=== PATIENT | female | born 1970 | race Caucasian/White ===

== ENCOUNTER → 2016-05-28 | Outpatient (CLI) | payer OTHER, MEDICAID | LOC: FIMAGING 14:05 | PROVIDERS: ATTEND Family Medicine | DX: Z13.820 Encounter for screening for osteoporosis (principal); M85.80 Other specified disorders of bone density and structure, unspecified site; E07.9 Disorder of thyroid, unspecified; G40.909 Epilepsy, unspecified, not intractable, without status epilepticus; Z99.3 Dependence on wheelchair ==

== ENCOUNTER → 2016-07-09 | Outpatient (CLI) | payer OTHER, MEDICAID | LOC: FIMAGING 15:35 | DX: Z12.31 Encounter for screening mammogram for malignant neoplasm of breast (principal) | CPT/HCPCS: G0202 ==

== ENCOUNTER 2016-09-03 08:23 | Day surgery (SDC) | payer OTHER, MEDICAID ==
--- NOTE | 2016-09-02 15:41 | GHP ---
[f rep st] PREOP HISTORY AND PHYSICAL DATE OF ADMISSION: 09/03/2016 ADMISSION DIAGNOSIS: Neurogenic bladder. HISTORY OF PRESENT ILLNESS: This is a 46-year-old lady who is wheelchair-bound because of cerebral palsy and a history of cerebrovascular accident. She has severe urge incontinence and, at the prese nt time, has requested a Botox injection of the bladder to attempt to help her with her neurogenic u rinary incontinence. PAST MEDICAL HISTORY: Cerebral palsy, diabetes, dysarthria, epilepsy, hemiplegia, hypertension, hyp othyroidism, incontinence with neurogenic bladder, restless legs syndrome, seizure disorder. PAST SURGICAL HISTORY: Cholecystectomy, heart bypass, hip, inguinal hernia, knee, and umbilical her tod. MEDICATIONS: Include amantadine, carbamazepine, furosemide, levetiracetam, levothyroxine, lisinopri l, nystatin powder, omeprazole, ropinirole, tizanidine, trimethoprim. ALLERGIES: [place], Tylenol, Tylox, Vicodin, Zosyn. FAMILY HISTORY: Diabetes, hypertension, kidney stones. SOCIAL HISTORY: Nonsmoker, nondrinker. REVIEW OF SYSTEMS: Negative cardiac, respiratory, GI, and endocrine. PHYSICAL EXAM: GENERAL: Wheelchair-bound. NECK: Normal with normal thyroid. RESPIRATORY: Effor t is nonlabored. ABDOMEN: Obese. HEART: Regular rate and rhythm. LOWER EXTREMITIES: Normal. N EUROLOGIC: She is oriented x3. Mood and affect are normal. PLAN: She is admitted for Botox injection of the bladder. Indications and complications have been discussed. Written and verbal consent have been obtained. /[id number]/MODL
--- NOTE | 2016-09-03 06:44 | PDHPUP ---
History & Physical Update H&P update statement: This history and physical update is based on an assessment of the patient which was completed after admission or registration (within 24 hours), but prior to the surgery/procedure. H&P update: H&P reviewed & patient examined, no change in patient's condition since H&P completed
[~2016-09-03 08:23] MED LIST: CLINDAMYCIN 900 MG/DEXTROSE 50 ML IV ONE
[2016-09-03] MEDS ORDERED: LR 1,000 ML IV ONE (09:02)
[2016-09-03 09:16] VITALS: O2SAT 95
--- NOTE | 2016-09-03 09:39 | CPEKG ---
Heart Rate: 84 RR Interval: 714 P-R Interval: 184 QRSD Interval: 88 QT Interval: 380 QTC Interval: 450 P Nelson: 47 QRS Nelson: 57 T Wave Nelson: 38 EKG Severity - NORMAL ECG - EKG Impression: SINUS RHYTHM Electronically Signed By: Jared Pearson 03-Sep-2016 10:00:26
[2016-09-03] MEDS ORDERED: CLINDAMYCIN 900 MG/DEXTROSE 50 ML IV ONE (10:00)
[2016-09-03] MEDS ORDERED: BOTULINUM TOXIN TYPE A 100 UNIT VIAL MISC ONE (10:06)
--- NOTE | 2016-09-03 10:25 | PDANEPAE ---
ANE History of Present Illness NEUROGENIC BLADDER ANE Past Medical History - Cardiovascular History Hx Hypertension: Yes Hx Arrhythmias: No Hx Chest Pain: No Hx Coronary Artery / Peripheral Vascular Disease: No Hx CHF / Valvular Disease: No Hx Palpitations: No - Pulmonary History Hx COPD: No Hx Asthma/Reactive Airway Disease: No Hx Recent Upper Respiratory Infection: No Hx Oxygen in Use at Home: No Hx Sleep Apnea: No Sleep Apnea Screening Result - Last Documented: Negative Pulmonary History Comment: ASTHMA - INHALER - Neurologic History Hx Cerebrovascular Accident: No Hx Seizures: No Hx Dementia: No Neurologic History Comment: CVA 6 YRS AGO. SEIZURE 2YRS AGO - Endocrine History Hx Diabetes: Yes Endocrine History Comment: HYPOTHYROID - Renal History Hx Renal Disorders: Yes Renal History Comment: INCONTINENCE. UROGENIC BLADDER - Liver History Hx Hepatic Disorders: Yes Hepatic History Comment: CHOLECYSTECTOMY - Neurological & Psychiatric Hx Hx Neurological and Psychiatric Disorders: No - Cancer History Hx Cancer: No - Congenital Disorder History Hx Congenital Disorders: No - GI History Hx Gastrointestinal Disorders: Yes Gastrointestinal History Comment: GERD - Other Health History Other Health History: EPILEPSY. ENCEPHALOPATHY - Chronic Pain History Chronic Pain: No - Surgical History Prior Surgeries: L DIANNE. SHUNT - BRAIN(STROKE W/FLUID BRAIN & STROKE). CHOLECYSTECTOMY ANE Review of Systems - Exercise capacity METS (RN): 1 METS ANE Patient History - Allergies Allergies/Adverse Reactions: acetaminophen [From Vicodin] Allergy (Intermediate, Verified 02/05/16 11:25) GI UPSET, EXTREME FATIGUE hydrocodone bitartrate [From Vicodin] Allergy (Intermediate, Verified 02/05/16 11:25) GI UPSET, EXTREME FATIGUE oxycodone HCl [From Tylox] Allergy (Verified 02/05/16 11:25) piperacillin sodium [From Zosyn] Allergy (Verified 02/05/16 11:25) tazobactam sodium [From Zosyn] Allergy (Verified 02/05/16 11:25) STRAWBERRIES Allergy (Intermediate, Uncoded 02/05/16 11:25) Rash - Home Medications Home Medications: Carbamazepine 04/27/14 [Last Taken Unknown] LEVETIRACETAM 04/27/14 [Last Taken Unknown] Levothyroxine 04/27/14 [Last Taken Unknown] Lisinopril 04/27/14 [Last Taken Unknown] Omeprazole 04/27/14 [Last Taken Unknown] Requip 04/27/14 [Last Taken Unknown] Trimethoprim 04/27/14 [Last Taken Unknown] Vitamin B Comp W-C 04/27/14 [Last Taken Unknown] Lasix 04/09/15 [Last Taken Unknown] - NPO status NPO Since - Liquids (Date): 09/03/16 NPO Since - Liquids (Time): 07:00 NPO Since - Solids (Date): 09/02/16 NPO Since - Solids (Time): 17:00 - Anes Hx Anes Hx: no prior problems - Smoking Hx Smoking Status: Never smoked ANE Labs/Vital Signs - Labs Result Diagrams: 09/03/16 09:30 - Vital Signs Blood Pressure: 143/88 Heart Rate: 87 Respiratory Rate: 15 O2 Sat (%): 95 Height: 149.86 cm Weight: 88.904 kg ANE Physical Exam - Airway Neck exam: FROM Mallampati Score: Class 2 Mouth exam: normal dental/mouth exam - Pulmonary Pulmonary: no respiratory distress - Cardiovascular Cardiovascular: regular rate and rhythym - ASA Status ASA Status: III ANE Anesthesia Plan Anesthesia Plan: general endotracheal anesthesia, GA w LMA
[2016-09-03] MEDS ORDERED: MIDAZOLAM 2 MG/2 ML VIAL IVP ONE (10:27)
[2016-09-03] MEDS ORDERED: MIDAZOLAM 2 MG/2 ML VIAL ONE (10:29)
[2016-09-03] MEDS ORDERED: PROPOFOL 200 MG/20 ML VIAL ONE ×2 (10:35→11:13)
[2016-09-03] MEDS ORDERED: fentaNYL 100 MCG/2 ML INJ ONE (10:35)
[2016-09-03 10:37] LABS: ANION GAP 11 mEq/L (8-16); CALCIUM 9.3 mg/dL (8.5-10.4); CARBON DIOXIDE 22 mEq/l (22-31); CHLORIDE 108 mEq/L (97-110); CREATININE 0.6 mg/dL (0.6-1.0); GLOMERULAR FILTRATION RATE > 60; GLUCOSE 92 mg/dL (70-100); POTASSIUM 4.6 mEq/L (3.5-5.2); SODIUM 141 mEq/L (134-144)
[2016-09-03] MEDS ORDERED: DEXAMETHASONE 4 MG/ML VIAL IVP PRN (11:11)
[2016-09-03] MEDS ORDERED: fentaNYL 100 MCG/2 ML INJ IVP PRN (11:11)
[2016-09-03] MEDS ORDERED: NALOXONE HCL 0.4 MG/ML INJ IVP PRN (11:11)
--- NOTE | 2016-09-03 11:30 | POSTANESTH ---
Post Anesthetic Evaluation Cardiovascular Status: Normal, Stable Respiratory Status: Normal, Stable Level of Consciousness/Mental Status: Can Participate in Eval Pain Control: Adequate, Prn Tx Ordered Nausea/Vomiting Control: Adequate, Prn Tx Ordered Complications Possibly Related to Anesthesia: None Noted
[2016-09-03 12:54] VITALS: TEMP 97.5
--- NOTE | 2016-09-03 12:55 | GOP ---
[f rep st] OPERATIVE REPORT DATE OF OPERATION: 09/03/2016 SURGEON: Dav Davila MD PREOPERATIVE DIAGNOSIS: Neurogenic bladder with urge incontinence. POSTOPERATIVE DIAGNOSIS: Neurogenic bladder with urge incontinence. PROCEDURE PERFORMED: FINDINGS: DESCRIPTION OF PROCEDURE: After undergoing general anesthesia and being prepped and draped in destini l sterile fashion, an appropriate time-out was performed. The scope was passed into her bladder, an d I reconstituted 200 units of Botox into 30 cc total of normal saline without preservative. At cecy t point, she had 31 mL injections into the bladder. At the end of the procedure, there was no signi ficant bleeding, and a Vega catheter was placed. She will be discharged home after she wakes. The catheter will be removed. She will see me in the office in 3 months. PROCEDURE: Cystoscopy with Botox denervation injections of the bladder. /[id number]/MODL
[2016-09-03 13:19] VITALS: RESP 13
[2016-09-03 13:45] VITALS: BP 102/62; PULSE 82
== END 2016-09-03 14:10 | disposition home or self-care (01) ==
LOC: FSGY 08:23
PROVIDERS: ATTEND Specialist
PROC: 3E0K8GC Introduction of Other Therapeutic Substance into Genitourinary Tract, Via Natural or Artificial Opening Endoscopic (ICD-10-PCS; principal; 2016-09-03 10:00)
DX: N31.9 Neuromuscular dysfunction of bladder, unspecified (principal); N39.41 Urge incontinence; G80.9 Cerebral palsy, unspecified; I69.359 Hemiplegia and hemiparesis following cerebral infarction affecting unspecified side; I69.322 Dysarthria following cerebral infarction; E11.9 Type 2 diabetes mellitus without complications; I10 Essential (primary) hypertension; E03.9 Hypothyroidism, unspecified; G40.909 Epilepsy, unspecified, not intractable, without status epilepticus
CPT/HCPCS: J0585; J2250; J2704; J3010

== ENCOUNTER 2017-01-14 13:49 | Day surgery (SDC) | payer OTHER, MEDICAID ==
--- NOTE | 2017-01-13 15:49 | GHP ---
[f rep st] PREOP HISTORY AND PHYSICAL ADMISSION DIAGNOSIS: Neurogenic bladder with urge incontinence. By history, this is a 46-year-old l leatha who has cerebral palsy and history of a stroke, and she has had a neurogenic bladder. She has be en treated with Botox in the past successfully and is requesting repeat Botox injection. She is whee lchair bound. She has cerebral palsy, hemiplegia. PREVIOUS SURGERIES: Botox, cholecystectomy, coronary bypass, hip surgery, inguinal hernia, knee, and umbilical hernia. MEDICATIONS: Include amantadine, carbamazepine, furosemide, levetiracetam, levothyroxine, lisinopril , omeprazole. ALLERGIES: [place], Tylenol, Tylox, Vicodin, and Zosyn. FAMILY HISTORY: Positive for diabetes, hypertension, kidney stones. SOCIAL HISTORY: Nonsmoker, nondrinker. REVIEW OF SYSTEMS: Negative cardiac, respiratory, GI, and endocrine. PHYSICAL EXAMINATION: GENERAL: Wheelchair bound, obese. VITAL SIGNS: Stable. CHEST: Clear. Unl abored breathing. EXTREMITIES: Lower extremities compatible with her congenital problems. She is admitted for Botox injection. /[id number]/MODL
[2017-01-14] MEDS ORDERED: LIDOCAINE 1% 2 ML INJ ID PRN (14:07)
[2017-01-14] MEDS ORDERED: LR 1,000 ML IV ONE (14:07)
[2017-01-14] MEDS ORDERED: BOTULINUM TOXIN TYPE A 100 UNIT VIAL MISC ONE (14:45)
[2017-01-14] MEDS ORDERED: ceFAZolin 2 GM/SWFI 2 GM/20 ML SYR IVP ONE (15:02)
[2017-01-14 15:04] LABS: ALANINE AMINOTRANSFERASE 33 IU/L (9-52); ALBUMIN 4.2 g/dL (3.5-5.0); ALKALINE PHOSPHATASE 142 IU/L (38-126); ANION GAP 12 mEq/L (8-16); ASPARTATE AMINOTRANSFERASE 25 IU/L (14-46); BILIRUBIN,TOTAL 0.4 mg/dL (0.1-1.4); CALCIUM 9.2 mg/dL (8.5-10.4); CARBON DIOXIDE 26 mEq/l (22-31); CHLORIDE 100 mEq/L (97-110); CREATININE 0.5 mg/dL (0.6-1.0); GLOMERULAR FILTRATION RATE > 60; GLUCOSE 87 mg/dL (70-100); POTASSIUM 4.4 mEq/L (3.5-5.2); SODIUM 138 mEq/L (134-144); TOTAL PROTEIN 7.5 g/dL (6.3-8.2)
[2017-01-14] MEDS ORDERED: VANCOMYCIN HCL/NORMAL SALINE 250 ML IV ONE (15:04)
[2017-01-14] MEDS ORDERED: MIDAZOLAM 2 MG/2 ML VIAL IVP ONE (15:08)
--- NOTE | 2017-01-14 15:12 | PDANEPAE ---
ANE History of Present Illness 46 yo with CP and neurogenic ANE Past Medical History - Cardiovascular History Hx Hypertension: Yes Hx Arrhythmias: No Hx Chest Pain: No Hx Coronary Artery / Peripheral Vascular Disease: No Hx CHF / Valvular Disease: No Hx Palpitations: No - Pulmonary History Hx COPD: No Hx Asthma/Reactive Airway Disease: Yes Hx Recent Upper Respiratory Infection: No Hx Oxygen in Use at Home: No Hx Sleep Apnea: No Sleep Apnea Screening Result - Last Documented: Negative Pulmonary History Comment: ASTHMA - INHALER - Neurologic History Hx Cerebrovascular Accident: No Hx Seizures: No Hx Dementia: No Neurologic History Comment: CVA 6 YRS AGO. SEIZURE 2YRS AGO - Endocrine History Hx Diabetes: Yes Endocrine History Comment: HYPOTHYROID - Renal History Hx Renal Disorders: Yes Renal History Comment: INCONTINENCE. UROGENIC BLADDER - Liver History Hx Hepatic Disorders: Yes Hepatic History Comment: CHOLECYSTECTOMY - Neurological & Psychiatric Hx Hx Neurological and Psychiatric Disorders: No - Cancer History Hx Cancer: No - Congenital Disorder History Hx Congenital Disorders: No - GI History Hx Gastrointestinal Disorders: Yes Gastrointestinal History Comment: GERD - Other Health History Other Health History: EPILEPSY. ENCEPHALOPATHY - Chronic Pain History Chronic Pain: No - Surgical History Prior Surgeries: CYSTO WITH BOTOX 09/03/2016. L DIANNE. SHUNT - BRAIN(STROKE W/ FLUID BRAIN & STROKE). CHOLECYSTECTOMY ANE Review of Systems Review of systems is: negative Review of Systems: - Exercise capacity METS (RN): 1 METS ANE Patient History - Allergies Allergies/Adverse Reactions: acetaminophen [From Vicodin] Allergy (Intermediate, Verified 02/05/16 11:25) GI UPSET, EXTREME FATIGUE hydrocodone bitartrate [From Vicodin] Allergy (Intermediate, Verified 02/05/16 11:25) GI UPSET, EXTREME FATIGUE oxycodone HCl [From Tylox] Allergy (Verified 02/05/16 11:25) piperacillin sodium [From Zosyn] Allergy (Verified 02/05/16 11:25) tazobactam sodium [From Zosyn] Allergy (Verified 02/05/16 11:25) STRAWBERRIES Allergy (Intermediate, Uncoded 02/05/16 11:25) Rash - Home Medications Home Medications: Carbamazepine HS 04/27/14 [Last Taken 01/13/17] LEVETIRACETAM BID 04/27/14 [Last Taken 01/14/17 08:00] Levothyroxine DAILY06 04/27/14 [Last Taken 01/14/17 08:00] Lisinopril DAILY06 04/27/14 [Last Taken 01/14/17] Omeprazole DAILY06 04/27/14 [Last Taken 01/14/17 08:00] Requip HS 04/27/14 [Last Taken 01/14/17 08:00] Trimethoprim DAILY06 04/27/14 [Last Taken Unknown] Vitamin B Comp W-C DAILY06 04/27/14 [Last Taken Unknown] Lasix DAILY06 04/09/15 [Last Taken 01/13/17] Proair Hfa PRN 01/12/17 [Last Taken 12/24/16] VITAMIN D HS 01/12/17 [Last Taken Unknown] - NPO status NPO Status: no food or drink >8 hours NPO Since - Liquids (Date): 01/13/17 NPO Since - Liquids (Time): 20:00 NPO Since - Solids (Date): 01/13/17 NPO Since - Solids (Time): 17:00 - Smoking Hx Smoking Status: Never smoked - Alcohol Use Alcohol Use: None - Family Anes Hx Family Anes Hx: none ANE Labs/Vital Signs - Labs Result Diagrams: 01/14/17 14:40 - Vital Signs Blood Pressure: 98/65 Heart Rate: 85 Respiratory Rate: 16 O2 Sat (%): 94 Height: 149.86 cm Weight: 92.986 kg ANE Physical Exam - Airway Neck exam: FROM Mallampati Score: Class 2 Mouth exam: normal dental/mouth exam - Pulmonary Pulmonary: no respiratory distress, clear to auscultation - Cardiovascular Cardiovascular: regular rate and rhythym - ASA Status ASA Status: III ANE Anesthesia Plan Anesthesia Plan: GA w LMA
[2017-01-14] MEDS ORDERED: fentaNYL 100 MCG/2 ML INJ ONE (15:35)
[2017-01-14] MEDS ORDERED: PROPOFOL 200 MG/20 ML VIAL ONE (15:35)
--- NOTE | 2017-01-14 16:11 | POSTOPPROG ---
Post Op Note Date of Operation: 01/14/17 Surgeon: Dav Davila Anesthesia: LMA Pre-op Diagnosis: ngb Procedure: botox 200 dictated Inf/Abcess present in the surg proc area at time of surgery?: No EBL: Minimal Complications: none
[2017-01-14] MEDS ORDERED: PROMETHAZINE HCL 25 MG/ML INJ IVP PRN (16:24)
[2017-01-14] MEDS ORDERED: NALOXONE HCL 0.4 MG/ML INJ IVP PRN (16:24)
[2017-01-14] MEDS ORDERED: fentaNYL 100 MCG/2 ML INJ IVP PRN (16:24)
[2017-01-14] MEDS ORDERED: ONDANSETRON 4 MG/2 ML VIAL IVP PRN (16:24)
[2017-01-14 16:26] VITALS: RESP 18
[2017-01-14 16:35] VITALS: TEMP 97.9
[2017-01-14 17:11] VITALS: BP 116/72; PULSE 84; O2SAT 99
--- NOTE | 2017-01-14 19:22 | GOP ---
[f rep st] OPERATIVE REPORT DATE OF OPERATION: 01/14/2017 SURGEON: Dav Davila MD PREOPERATIVE DIAGNOSIS: Neurogenic bladder with ureter urge incontinence. POSTOPERATIVE DIAGNOSIS: Neurogenic bladder with ureter urge incontinence. PROCEDURE PERFORMED: Botox denervation of the bladder. FINDINGS: DESCRIPTION OF PROCEDURE: After appropriate time-out and identifying the patient, she was prepped an d draped in normal sterile fashion in dorsal lithotomy position. Urethra was cannulated with the cys toscope and with the injection needle placed at 5 mm, I did 30 injections of 1 cc of Botox injection. It had been reconstituted with non-bacteriostatic saline and the 2 vials were reconstituted at 30 m L total. At the end of the procedure, there was no significant bleeding in the bladder. Multiple si marjorie injected and elected not to place a catheter. She will be discharged home to have followup with me in 3 months. No specimens obtained. No complications. Estimated blood loss less than 5 mL. /[id number]/MODL
== END 2017-01-14 17:49 | disposition home or self-care (01) ==
LOC: FSGY 13:49
PROVIDERS: ATTEND Specialist
PROC: 3E0K8GC Introduction of Other Therapeutic Substance into Genitourinary Tract, Via Natural or Artificial Opening Endoscopic (ICD-10-PCS; principal; 2017-01-14 15:15)
DX: N39.41 Urge incontinence (principal); N31.9 Neuromuscular dysfunction of bladder, unspecified; G80.8 Other cerebral palsy; I69.359 Hemiplegia and hemiparesis following cerebral infarction affecting unspecified side; Z99.3 Dependence on wheelchair; Z95.1 Presence of aortocoronary bypass graft
CPT/HCPCS: J0585; J2250; J2704; J3010; J3370

== ENCOUNTER 2017-05-27 12:18 | Day surgery (SDC) | payer OTHER, MEDICAID ==
--- NOTE | 2017-05-26 16:53 | GHP ---
[f rep st] PREOP HISTORY AND PHYSICAL ADMISSION DIAGNOSIS: Neurogenic bladder, urinary incontinence. HISTORY OF PRESENT ILLNESS: This is a 47-year-old lady who has had previous cerebral palsy and strok e, and she is wheelchair bound. 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 She freed s had neurogenic bladder with incontinence and she is admitted for repeat Botox injections. PAST MEDICAL HISTORY: Cerebral palsy, diabetes, dysarthria, epilepsy, hemiplegia, hypertension, hypo thyroidism, neurogenic bladder. PAST SURGICAL HISTORY: Botox, cholecystectomy, heart surgery, hip, inguinal hernia, knee, and umbili charles hernia. MEDICATIONS: Amantadine, carbamazepine, levetiracetam, levothyroxine, lisinopril, omeprazole, occasi onal trimethoprim. ALLERGIES: [place], Tylenol, Tylox, Vicodin, Zosyn. FAMILY HISTORY: Positive for hypertension, kidney stones, and diabetes. SOCIAL HISTORY: veterinary technician assistant, nonsmoker, nondrinker. REVIEW OF SYSTEMS: Negative for cardiac, respiratory GI and endocrine. PHYSICAL EXAMINATION: GENERAL: She is wheelchair bound. EYES: No scleral icterus appreciated. NECK : Thyroid is normal. LUNGS: Respiratory effort nonlabored. ABDOMEN: Obese. EXTREMITIES: Lower extr emities present. PLAN: At the present time, she is admitted for the Botox innervation of the bladder. /[id number]/MODL
[~2017-05-27 12:18] MED LIST changes: +BOTULINUM TOXIN TYPE A 100 UNIT VIAL MISC ONE
[2017-05-27] MEDS ORDERED: LIDOCAINE 2% JELLY 20 ML (UROJECT) ONE (12:29)
[2017-05-27] MEDS ORDERED: LIDOCAINE 1% 2 ML INJ ID PRN (12:35)
[2017-05-27] MEDS ORDERED: LR 1,000 ML IV ONE (12:35)
[2017-05-27] MEDS ORDERED: CLINDAMYCIN 900 MG/DEXTROSE/50 ML BAG IV ONE (13:18)
[2017-05-27] MEDS ORDERED: MIDAZOLAM 2 MG/2 ML VIAL IVP ONE (13:26)
[2017-05-27] MEDS ORDERED: NALOXONE HCL 0.4 MG/ML INJ IVP PRN (13:26)
[2017-05-27] MEDS ORDERED: fentaNYL 100 MCG/2 ML INJ IVP PRN (13:26)
[2017-05-27] MEDS ORDERED: ONDANSETRON 4 MG/2 ML VIAL IVP PRN (13:26)
[2017-05-27] MEDS ORDERED: ALBUTEROL 3 ML DEYVIAL IH PRN (13:26)
[2017-05-27] MEDS ORDERED: DEXAMETHASONE 4 MG/ML VIAL IVP PRN (13:26)
[2017-05-27] MEDS ORDERED: HYDROmorphONE/DILAUDID 1 MG/ML INJ IVP PRN (13:26)
--- NOTE | 2017-05-27 13:27 | PDANEPAE ---
ANE History of Present Illness Botox Bladder ANE Past Medical History - Cardiovascular History Hx Hypertension: Yes Hx Arrhythmias: No Hx Chest Pain: No Hx Coronary Artery / Peripheral Vascular Disease: No Hx CHF / Valvular Disease: No Hx Palpitations: No - Pulmonary History Hx COPD: No Hx Asthma/Reactive Airway Disease: Yes Hx Recent Upper Respiratory Infection: No Hx Oxygen in Use at Home: No Hx Sleep Apnea: No Sleep Apnea Screening Result - Last Documented: Negative Pulmonary History Comment: ASTHMA - INHALER - Neurologic History Hx Cerebrovascular Accident: No Hx Seizures: No Hx Dementia: No Neurologic History Comment: CVA 6 YRS AGO. SEIZURE 2YRS AGO - Endocrine History Hx Diabetes: No Endocrine History Comment: HYPOTHYROID - Renal History Hx Renal Disorders: No Renal History Comment: INCONTINENCE. UROGENIC BLADDER - Liver History Hx Hepatic Disorders: No Hepatic History Comment: CHOLECYSTECTOMY - Neurological & Psychiatric Hx Hx Neurological and Psychiatric Disorders: Yes Neurological / Psychiatric History Comment: CEREBRAL PALSY - Cancer History Hx Cancer: No - Congenital Disorder History Hx Congenital Disorders: No - GI History Hx Gastrointestinal Disorders: Yes Gastrointestinal History Comment: GERD - Other Health History Other Health History: EPILEPSY. ENCEPHALOPATHY - Chronic Pain History Chronic Pain: No - Surgical History Prior Surgeries: CYSTO WITH BOTOX 09/03/2016. L DIANNE. SHUNT - BRAIN(STROKE W/ FLUID BRAIN & STROKE). CHOLECYSTECTOMY ANE Review of Systems Review of Systems: - Exercise capacity METS (RN): 1 METS ANE Patient History - Allergies Allergies/Adverse Reactions: acetaminophen [From Vicodin] Allergy (Intermediate, Verified 02/05/16 11:25) GI UPSET, EXTREME FATIGUE hydrocodone bitartrate [From Vicodin] Allergy (Intermediate, Verified 02/05/16 11:25) GI UPSET, EXTREME FATIGUE oxycodone HCl [From Tylox] Allergy (Verified 02/05/16 11:25) piperacillin sodium [From Zosyn] Allergy (Verified 02/05/16 11:25) tazobactam sodium [From Zosyn] Allergy (Verified 02/05/16 11:25) [place]AW[place]ES Allergy (Intermediate, Uncoded 02/05/16 11:25) Rash - Home Medications Home Medications: Carbamazepine HS 04/27/14 [Last Taken 05/26/17] LEVETIRACETAM BID 04/27/14 [Last Taken 05/26/17] Levothyroxine DAILY06 04/27/14 [Last Taken 05/26/17] Lisinopril DAILY06 04/27/14 [Last Taken 05/26/17] Omeprazole DAILY06 04/27/14 [Last Taken 05/26/17] Requip HS 04/27/14 [Last Taken 05/26/17] Trimethoprim DAILY06 04/27/14 [Last Taken 05/26/17] Vitamin B Comp W-C DAILY06 04/27/14 [Last Taken 05/26/17] Lasix DAILY06 04/09/15 [Last Taken 05/26/17] Proair Hfa PRN 01/12/17 [Last Taken 04/27/17] VITAMIN D HS 01/12/17 [Last Taken 05/26/17] - NPO status NPO Since - Liquids (Date): 05/27/17 NPO Since - Liquids (Time): 09:00 NPO Since - Solids (Date): 05/26/17 NPO Since - Solids (Time): 20:00 - Smoking Hx Smoking Status: Never smoked - Family Anes Hx Family Hx Anesthesia Complications: NONE ANE Labs/Vital Signs - Labs Result Diagrams: 05/27/17 13:08 - Vital Signs Blood Pressure: 114/72 Heart Rate: 76 Respiratory Rate: 16 O2 Sat (%): 95 Height: 152.4 cm Weight: 90.718 kg ANE Physical Exam - Airway Neck exam: FROM Mallampati Score: Class 2 Mouth exam: normal dental/mouth exam - Pulmonary Pulmonary: clear to auscultation - Cardiovascular Cardiovascular: regular rate and rhythym - ASA Status ASA Status: III ANE Anesthesia Plan Anesthesia Plan: GA w LMA
[2017-05-27] MEDS ORDERED: HYDROmorphONE/DILAUDID 2 MG/ML INJ IVP PRN (13:31)
[2017-05-27] MEDS ORDERED: PROPOFOL 200 MG/20 ML VIAL ONE (13:32)
--- NOTE | 2017-05-27 14:25 | POSTOPPROG ---
Post Op Note Date of Operation: 05/27/17 Surgeon: Dav Davila Pre-op Diagnosis: ngb Procedure: BLADDER BOTOX Inf/Abcess present in the surg proc area at time of surgery?: No EBL: Minimal Specimen(s): DICTATED
--- NOTE | 2017-05-27 14:27 | POSTANESTH ---
Post Anesthetic Evaluation Cardiovascular Status: Normal, Stable Respiratory Status: Normal, Stable Level of Consciousness/Mental Status: Alert and Oriented Pain Control: Adequate, Prn Tx Ordered Nausea/Vomiting Control: Adequate, Prn Tx Ordered Complications Possibly Related to Anesthesia: None Noted
--- NOTE | 2017-05-27 14:37 | GOP ---
[f rep st] OPERATIVE REPORT DATE OF OPERATION: 05/27/2017 SURGEON: Dav Davila MD PREOPERATIVE DIAGNOSIS: Neurogenic bladder. POSTOPERATIVE DIAGNOSIS: Neurogenic bladder. PROCEDURE PERFORMED: Botox nerve denervation of the bladder cystoscopically. FINDINGS: DESCRIPTION OF PROCEDURE: The lady underwent general anesthesia, and after appropriate time-out, pre pped and draped in normal sterile fashion, dorsal lithotomy position, and the scope was passed in the bladder and visualization of bladder revealed no tumor, stones, or foreign bodies, and then at that point, I had reconstituted 200 units of Botox into 30 cc of sterile solution. Then 30 injections of 1 mL each were placed in the bladder strategically. At the end of the procedure she had no significa nt bleeding. I elected to place a catheter just as she wakes up, and then we will have the catheter removed and she will be discharged home to have followup with me in the office in 3-4 months. /[id number]/MODL
[2017-05-27 15:37] VITALS: TEMP 97.5
[2017-05-27 15:53] VITALS: PULSE 79; RESP 17
[2017-05-27 16:11] VITALS: BP 129/96; O2SAT 94
== END 2017-05-27 16:45 | disposition home or self-care (01) ==
LOC: FSGY 12:18
PROVIDERS: ATTEND Specialist
PROC: 0TJB8ZZ Inspection of Bladder, Via Natural or Artificial Opening Endoscopic (ICD-10-PCS; principal; 2017-05-27 13:45)
PROC: 3E0K8GC Introduction of Other Therapeutic Substance into Genitourinary Tract, Via Natural or Artificial Opening Endoscopic (ICD-10-PCS; principal; 2017-05-27 13:45)
DX: N31.9 Neuromuscular dysfunction of bladder, unspecified (principal); N39.41 Urge incontinence; G80.9 Cerebral palsy, unspecified; I69.359 Hemiplegia and hemiparesis following cerebral infarction affecting unspecified side; I69.322 Dysarthria following cerebral infarction; E11.9 Type 2 diabetes mellitus without complications; G40.909 Epilepsy, unspecified, not intractable, without status epilepticus; I10 Essential (primary) hypertension; E03.9 Hypothyroidism, unspecified; Z99.3 Dependence on wheelchair
CPT/HCPCS: J0585; J2250; J2704

== ENCOUNTER → 2017-07-21 | Outpatient (CLI) | payer OTHER, MEDICAID | LOC: FIMAGING 10:22 | PROVIDERS: ATTEND Family Medicine | DX: Z12.31 Encounter for screening mammogram for malignant neoplasm of breast (principal) ==

== ENCOUNTER 2017-11-18 07:26 | Day surgery (SDC) | payer OTHER, MEDICAID ==
--- NOTE | 2017-11-17 16:31 | GHP ---
ADMISSION DIAGNOSIS: Neurogenic bladder. HISTORY: This lady has had neurogenic bladder and she is admitted for Botox chemical denervation of the bladder for her urge incontinence. PAST MEDICAL HISTORY: Cerebral palsy, diabetes, dysarthria, epilepsy, hemiplegia, hypertension, hypothyroidism, urge incontinence, seizure disorder, restless legs syndrome, and asthma. PAST SURGICAL HISTORY: Gallbladder, heart bypass, hip, inguinal hernia, knee surgery, umbilical hernia, and she has also had Botox on 3 other occasions. MEDICATIONS: Amantadine, carbamazepine, furosemide, levothyroxine, levetiracetam, omeprazole, lisinopril, levothyroxine, ropinirole, tizanidine, triamterene. ALLERGIES: [place]raw[place], Tylenol, Tylox, Vicodin, Zosyn. FAMILY HISTORY: Hypertension, kidney stones, diabetes. SOCIAL HISTORY: She is an senior administrative services officer. Nonsmoker, nondrinker. REVIEW OF SYSTEMS: She is wheelchair bound. PHYSICAL EXAM: VITAL SIGNS: Stable. CHEST: Unlabored breathing. HEART: Regular rate and rhythm. GENERAL: She is wheelchair bound. ASSESSMENT AND PLAN: At the present time, she is admitted for Botox injection. /[id number]/MODL MTDD
[2017-11-18] MEDS ORDERED: ceFAZolin 2 GM/DEXTROSE 100 ML IV ONE (07:49)
[2017-11-18] MEDS ORDERED: BOTULINUM TOXIN TYPE A 100 UNIT VIAL MISC ONE (07:50)
[2017-11-18] MEDS ORDERED: LR 1,000 ML IV ONE (08:21)
[2017-11-18] MEDS ORDERED: LIDOCAINE 1% 2 ML INJ ID PRN (08:21)
[2017-11-18] MEDS ORDERED: LIDOCAINE 2% JELLY 20 ML (UROJECT) ONE (08:29)
[2017-11-18] MEDS ORDERED: MIDAZOLAM 2 MG/2 ML VIAL IVP ONE (09:40)
[2017-11-18] MEDS ORDERED: MIDAZOLAM 2 MG/2 ML VIAL ONE (09:42)
[2017-11-18] MEDS ORDERED: PROPOFOL 200 MG/20 ML VIAL ONE (09:58)
[2017-11-18] MEDS ORDERED: fentaNYL 100 MCG/2 ML INJ ONE (09:58)
[2017-11-18] MEDS ORDERED: LIDOCAINE 2% 2 ML INJ ONE (09:58)
[2017-11-18] MEDS ORDERED: ONDANSETRON 4 MG/2 ML VIAL ONE (10:20)
[2017-11-18] MEDS ORDERED: NALOXONE HCL 0.4 MG/ML INJ IVP PRN (10:39)
--- NOTE | 2017-11-18 10:39 | POSTANESTH ---
Post Anesthetic Evaluation Cardiovascular Status: Normal, Stable Respiratory Status: Normal, Stable Level of Consciousness/Mental Status: Can Participate in Eval, Mildly Sleepy, Arousable Pain Control: Adequate, Prn Tx Ordered Nausea/Vomiting Control: Adequate, Prn Tx Ordered Complications Possibly Related to Anesthesia: None Noted
--- NOTE | 2017-11-18 10:39 | PDANEPAE ---
ANE History of Present Illness CEREBRAL PALSY ANE Past Medical History - Cardiovascular History Hx Hypertension: Yes Hx Arrhythmias: No Hx Chest Pain: No Hx Coronary Artery / Peripheral Vascular Disease: No Hx CHF / Valvular Disease: No Hx Palpitations: No - Pulmonary History Hx COPD: No Hx Asthma/Reactive Airway Disease: Yes Hx Recent Upper Respiratory Infection: No Hx Oxygen in Use at Home: No Hx Sleep Apnea: No Pulmonary History Comment: instructed caregiver to bring inhaler - Neurologic History Hx Cerebrovascular Accident: Yes Hx Seizures: Yes Hx Dementia: No Neurologic History Comment: CVA 2011. epilepsy- last seizure 2015. encephalopathy with shunt - Endocrine History Hx Diabetes: No Endocrine History Comment: hypothyroidism - Renal History Hx Renal Disorders: Yes Renal History Comment: INCONTINENCE. UROGENIC BLADDER. hx of cystoscopies with botox injections - Liver History Hx Hepatic Disorders: No Hepatic History Comment: CHOLECYSTECTOMY - Neurological & Psychiatric Hx Hx Neurological and Psychiatric Disorders: Yes Neurological / Psychiatric History Comment: cerebral palsy - Cancer History Hx Cancer: No - Congenital Disorder History Hx Congenital Disorders: No - GI History Hx Gastrointestinal Disorders: Yes Gastrointestinal History Comment: gerd - Other Health History Other Health History: hearing aide to left ear only. lives in correction- caregiver will be with pt. she can sign her own consents per caregiver "morgan" at time of PAT call - Chronic Pain History Chronic Pain: No - Surgical History Prior Surgeries: cystoscopies with Botox injections with Giovanni 09/03/2016, , 05/27/17. 12/27/08 ventral hernia repair with Joyner. L DIANNE. SHUNT - BRAIN (STROKE W/FLUID BRAIN & STROKE). CHOLECYSTECTOMY ANE Review of Systems Review of systems is: negative Review of Systems: - Exercise capacity Exercise capacity: limited by disability METS (RN): 1 METS ANE Patient History - Allergies Allergies/Adverse Reactions: acetaminophen [From Vicodin] Allergy (Verified 11/18/17 07:42) GI UPSET, EXTREME FATIGUE hydrocodone bitartrate [From Vicodin] Allergy (Verified 11/18/17 07:42) GI UPSET, EXTREME FATIGUE Penicillins Allergy (Verified 11/18/17 08:13) Unknown piperacillin sodium [From Zosyn] Allergy (Verified 11/18/17 07:42) Unknown tazobactam sodium [From Zosyn] Allergy (Verified 11/18/17 07:42) Unknown STRAWBERRIES Allergy (Mild, Uncoded 11/18/17 07:42) Rash - Home Medications Home Medications: Carbamazepine 200 mg PO DAILY06 04/27/14 [Last Taken 11/18/17 06:30] LEVETIRACETAM 750 mg PO BID 04/27/14 [Last Taken 11/18/17 06:30] Levothyroxine 88 mcg PO DAILY06 04/27/14 [Last Taken 11/18/17 06:30] Lisinopril 30 mg PO DAILY06 04/27/14 [Last Taken 11/18/17 06:30] Omeprazole 20 mg PO DAILY AT 6AM 04/27/14 [Last Taken 11/18/17 06:30] Trimethoprim 100 mg PO DAILY06 04/27/14 [Last Taken 11/18/17 06:30] Vitamin B Comp W-C 1 tab PO DAILY06 04/27/14 [Last Taken 11/18/17 06:30] Lasix 20 mg PO DAILY06 04/09/15 [Last Taken 11/18/17 06:30] Proair Hfa PRN 01/12/17 [Last Taken 10/28/17 08:15] VITAMIN D 2,000 iunits PO DAILY06 01/12/17 [Last Taken 11/18/17 06:30] Albuterol 3 ml NEB PRN 11/18/17 [Last Taken 18] Carbamazepine 400 mg PO DAILY18 11/18/17 [Last Taken 11/17/17 19:00] Ropinirole HCl 1 mg PO HS 11/18/17 [Last Taken 11/17/17] Stiolto Respimat Inhal [place] 2 puffs DAILY06 11/18/17 [Last Taken 11/18/17 06:30 ] - NPO status NPO Status: no food or drink >8 hours NPO Since - Liquids (Date): 11/17/17 NPO Since - Liquids (Time): 00:00 NPO Since - Solids (Date): 11/17/17 NPO Since - Solids (Time): 17:30 - Anes Hx Anes Hx: no prior problems - Smoking Hx Smoking Status: Never smoked - Alcohol Use Alcohol Use: None - Family Anes Hx Family Anes Hx: none Family Hx Anesthesia Complications: none ANE Labs/Vital Signs - Vital Signs Vital Signs: reviewed preoperatively; see RN documention for details Blood Pressure: 121/88 Heart Rate: 72 Respiratory Rate: 18 O2 Sat (%): 99 Height: 147.32 cm Weight: 91.626 kg ANE Physical Exam - Airway Mallampati Score: Class 2 Mouth exam: normal dental/mouth exam, small mouth opening - Pulmonary Pulmonary: no respiratory distress - Cardiovascular Cardiovascular: regular rate and rhythym ANE Anesthesia Plan Anesthesia Plan: GA w LMA
--- NOTE | 2017-11-18 10:46 | POSTOPPROG ---
Post Op Note Date of Operation: 11/18/17 (dictated) Surgeon: Dav Davila Anesthesia: LMA Pre-op Diagnosis: NGB Procedure: chemodenervation of bladder--200 units botox Inf/Abcess present in the surg proc area at time of surgery?: No EBL: Minimal Drains: Other (kwong)
--- NOTE | 2017-11-18 10:51 | GOP ---
DATE OF OPERATION: 11/18/2017 SURGEON: Dav Davila MD ANESTHESIOLOGIST: Choco provided general anesthesia. PREOPERATIVE DIAGNOSIS: Neurogenic bladder with urge incontinence. POSTOPERATIVE DIAGNOSIS: Neurogenic bladder with urge incontinence. PROCEDURE PERFORMED: Chemodenervation of the bladder with Botox injections. FINDINGS: Trabeculated bladder DESCRIPTION OF PROCEDURE: After being prepped and draped in normal sterile fashion in dorsal lithotomy position and appropriate time-out, the cystoscope was passed into her bladder. Previously reconstituted 200 units of Botox into 30 cc of sterile solution and she received 30 injections in the bladder. The needle was engaged to 5 mm in depth and she had instant infiltration of the 30 sites of the posterior bladder and lateral arango. At the end of the procedure, she had minimal bleeding. A Vega catheter was passed in the bladder and a 20 cc balloon inflated. She will be discharged home without the catheter, to have follow up in the office when the results of this are no longer effective. Botox was lot number [id number], expiration date 05/2020. /[id number]/MODL MTDD
[2017-11-18 12:45] VITALS: BP 111/80
== END 2017-11-18 12:40 | disposition home or self-care (01) ==
LOC: FSGY 07:26
PROVIDERS: ATTEND Specialist
PROC: 0TJB8ZZ Inspection of Bladder, Via Natural or Artificial Opening Endoscopic (ICD-10-PCS; principal; 2017-11-18 09:00)
PROC: 3E0K8GC Introduction of Other Therapeutic Substance into Genitourinary Tract, Via Natural or Artificial Opening Endoscopic (ICD-10-PCS; principal; 2017-11-18 09:00)
DX: N31.9 Neuromuscular dysfunction of bladder, unspecified (principal); G40.909 Epilepsy, unspecified, not intractable, without status epilepticus; G80.9 Cerebral palsy, unspecified; E66.01 Morbid (severe) obesity due to excess calories; E03.9 Hypothyroidism, unspecified; Z86.73 Personal history of transient ischemic attack (TIA), and cerebral infarction without residual deficits; E11.9 Type 2 diabetes mellitus without complications; N39.41 Urge incontinence; I10 Essential (primary) hypertension
CPT/HCPCS: J0585; J0690; J2250; J2405; J2704; J3010

== ENCOUNTER 2018-05-03 16:59 | Emergency (ER) | payer OTHER, MEDICAID ==
--- NOTE | 2018-05-03 17:55 | EDPHY ---
H & P Stated Complaint: ? dk blood in stool /had beets yesterday Time Seen by Provider: 05/03/18 17:34 HPI/ROS: CHIEF COMPLAINT: Possible blood in stool HISTORY OF PRESENT ILLNESS: 48-year-old female with cerebral palsy presents with possible blood in stool. Caregivers noted brown stool surrounded by red fluid after a bowel movement today. Concern for blood. No abdominal pain, vomiting, diarrhea or prior GI bleed. Ate beats yesterday. REVIEW OF SYSTEMS: complete 10 point ROS reviewed and is negative except for the noted elements in the HPI - Personal History LMP (Females 10-55): Post Menopausal Current Tetanus Diphtheria and Acellular Pertussis (TDAP): Yes - Medical/Surgical History Hx Asthma: No Hx Chronic Respiratory Disease: No Hx Diabetes: No Hx Cardiac Disease: Yes Hx Renal Disease: No Hx Cirrhosis: No Hx Alcoholism: No Hx HIV/AIDS: No Hx Splenectomy or Spleen Trauma: No Other PMH: htn epilepsy dvt's hip rods l hemiplegia DM HYDROCEPHALAS CEREBRAL PALSEY, shunt - Social History Smoking Status: Never smoked - Physical Exam Exam: General Appearance: Alert, pleasant Eyes: Pupils equal and round, no conjunctival pallor ENT, Mouth: Mucous membranes moist Neck: Normal inspection Respiratory: Lungs are clear to auscultation Cardiovascular: Regular rate and rhythm Gastrointestinal: Abdomen is soft and nontender Rectal: No stool present, pinkish fluid present Neurological: Alert, nonfocal exam Skin: Warm and dry Extremities: Braces on lower legs Psychiatric: Mood and affect normal Constitutional: Initial Vital Signs Temperature (C) 36.4 C 05/03/18 17:12 Heart Rate 83 05/03/18 17:12 Respiratory Rate 18 05/03/18 17:12 Blood Pressure 115/81 H 05/03/18 17:12 O2 Sat (%) 95 05/03/18 17:12 O2 Delivery Mode Room Air Allergies/Adverse Reactions: acetaminophen [From Vicodin] Allergy (Verified 05/03/18 17:09) GI UPSET, EXTREME FATIGUE hydrocodone bitartrate [From Vicodin] Allergy (Verified 05/03/18 17:09) GI UPSET, EXTREME FATIGUE Penicillins Allergy (Verified 05/03/18 17:09) long time ago, can't remember piperacillin sodium [From Zosyn] Allergy (Verified 05/03/18 17:09) Unknown tazobactam sodium [From Zosyn] Allergy (Verified 05/03/18 17:09) Unknown STRAWBERRIES Allergy (Uncoded 04/22/18 12:22) Rash Home Medications: Medication Instructions Recorded Carbamazepine 200 mg PO DAILY06 04/27/14 LEVETIRACETAM 750 mg PO BID 04/27/14 Levothyroxine 88 mcg PO DAILY06 04/27/14 Lisinopril 30 mg PO DAILY06 04/27/14 Omeprazole 20 mg PO DAILY AT 6AM 04/27/14 Trimethoprim 100 mg PO DAILY06 04/27/14 Vitamin B Comp W-C 1 tab PO DAILY06 04/27/14 Lasix 20 mg PO DAILY06 04/09/15 Proair Hfa PRN 01/12/17 VITAMIN D 2,000 iunits PO DAILY06 01/12/17 Albuterol 3 ml NEB PRN 11/18/17 Carbamazepine 400 mg PO DAILY18 11/18/17 Ropinirole HCl 1 mg PO HS 11/18/17 Stiolto Respimat Inhal [place] 2 puffs DAILY06 11/18/17 Medical Decision Making ED Course/Re-evaluation: Stool is negative for occult blood. Reddish discoloration of stools is secondary to beet ingestion. Results discussed with the patient and her caregiver. - Data Points Laboratory Results: 05/03/18 18:00 Stool Occult Bld Scrn NEGATIVE (NEGATIVE) Departure - Departure Disposition: Home, Routine, Self-Care Clinical Impression: Red stool Condition: Good Instructions: Additional Information Additional Instructions: There is no blood in your stools. The red discoloration is because of beet ingestion. Referrals: Efra Ann DO [Primary Care Provider] - As per Instructions
[2018-05-03 18:51] VITALS: BP 121/83
== END 2018-05-03 18:58 | disposition home or self-care (01) ==
DX: R19.5 Other fecal abnormalities (principal); G80.9 Cerebral palsy, unspecified; E11.9 Type 2 diabetes mellitus without complications; I10 Essential (primary) hypertension; Z79.4 Long term (current) use of insulin

== ENCOUNTER 2018-05-19 09:15 | Day surgery (SDC) | payer OTHER, MEDICAID ==
--- NOTE | 2018-05-18 19:33 | GHP ---
[f rep st] PREOP HISTORY AND PHYSICAL ADMISSION DIAGNOSIS: Neurogenic bladder. HISTORY OF PRESENT ILLNESS: This is a 48-year-old lady who is confined to a wheelchair with a history of cerebral palsy and history of stroke. She has had neurogenic bladder that requires intermittent Botox injections. She feels that the Botox has helped with her urinary symptoms. She is admitted as an outpatient for the above procedure. PAST MEDICAL HISTORY: Diabetes, dysarthria, epilepsy, hemiplegia, urge incontinence. PAST SURGICAL HISTORY: Cholecystectomy, cardiac bypass, inguinal hernia, knee surgery, umbilical hernia, and Botox injections. MEDICATIONS: Include: 1. Amantadine. 2. Carbamazepine. 3. Furosemide. 4. Levetiracetam. 5. Levothyroxine. 6. Lisinopril. 7. Omeprazole. 8. Ropinirole. ALLERGIES: Strawberries, Tylenol, Tylox, Vicodin, and Zosyn. FAMILY HISTORY: Hypertension, kidney stones, diabetes. SOCIAL HISTORY: Nondrinker, nonsmoker. REVIEW OF SYSTEMS: Negative for cardiac, respiratory, GI and endocrine. PHYSICAL EXAMINATION: VITAL SIGNS: In the office have been: Blood pressure 101/ 73, heart rate 85, O2 saturation on room air 98%. GENERAL: Wheelchair bound. NECK: Supple. CHEST: Unlabored breathing noted. HEART: Regular rate and rhythm. ABDOMEN: Abdominal obesity. IMPRESSION: At the present time, she is admitted for the Botox injections. /[id number]/MODL MTDD
[2018-05-19] MEDS ORDERED: LIDOCAINE 2% JELLY 20 ML (UROJECT) ONE (10:22)
[2018-05-19] MEDS ORDERED: BOTULINUM TOXIN TYPE A 100 UNIT VIAL MISC ONE ×2 (10:30→10:51)
[2018-05-19] MEDS ORDERED: VANCOMYCIN PHARMACY TO DOSE MISC ONE (10:51)
--- NOTE | 2018-05-19 10:59 | PDANEPAE ---
ANE Past Medical History - Cardiovascular History Hx Hypertension: Yes Hx Arrhythmias: No Hx Chest Pain: No Hx Coronary Artery / Peripheral Vascular Disease: No Hx CHF / Valvular Disease: No Hx Palpitations: No - Pulmonary History Hx COPD: No Hx Asthma/Reactive Airway Disease: Yes Hx Recent Upper Respiratory Infection: No Hx Oxygen in Use at Home: No Hx Sleep Apnea: No Sleep Apnea Screening Result - Last Documented: Negative Pulmonary History Comment: instructed caregiver to bring inhaler - Neurologic History Hx Cerebrovascular Accident: Yes Hx Seizures: Yes Hx Dementia: No Neurologic History Comment: CVA 2011. epilepsy- last seizure 2015. encephalopathy with shunt - Endocrine History Hx Diabetes: No Endocrine History Comment: hypothyroidism - Renal History Hx Renal Disorders: Yes Renal History Comment: INCONTINENCE. UROGENIC BLADDER. hx of cystoscopies with botox injections - Liver History Hx Hepatic Disorders: No Hepatic History Comment: CHOLECYSTECTOMY - Neurological & Psychiatric Hx Hx Neurological and Psychiatric Disorders: Yes Neurological / Psychiatric History Comment: cerebral palsy - Cancer History Hx Cancer: No - Congenital Disorder History Hx Congenital Disorders: No - GI History Hx Gastrointestinal Disorders: Yes Gastrointestinal History Comment: gerd - Other Health History Other Health History: hearing aide to left ear only. lives in long term- she can sign her own consents. - Chronic Pain History Chronic Pain: No - Surgical History Prior Surgeries: cystoscopies with Botox injections with Giovanni 09/03/2016, , 05/27/17, 11/18/17. 12/27/08 ventral hernia repair with Joyner. L DIANNE. SHUNT - BRAIN(STROKE W/FLUID BRAIN & STROKE). CHOLECYSTECTOMY ANE Review of Systems Review of Systems: - Exercise capacity METS (RN): 1 METS ANE Patient History - Allergies Allergies/Adverse Reactions: acetaminophen [From Vicodin] Allergy (Verified 05/13/18 12:53) GI UPSET, EXTREME FATIGUE hydrocodone bitartrate [From Vicodin] Allergy (Verified 05/13/18 12:53) GI UPSET, EXTREME FATIGUE Penicillins Allergy (Verified 05/13/18 12:53) long time ago, can't remember piperacillin sodium [From Zosyn] Allergy (Verified 05/13/18 12:53) Unknown tazobactam sodium [From Zosyn] Allergy (Verified 05/13/18 12:53) Unknown STRAWBERRIES Allergy (Uncoded 05/13/18 12:53) Rash - Home Medications Home Medications: LEVETIRACETAM 04/27/14 [Last Taken 11/18/17 06:30] Levothyroxine 04/27/14 [Last Taken 11/18/17 06:30] Lisinopril 04/27/14 [Last Taken 11/18/17 06:30] Omeprazole 04/27/14 [Last Taken 11/18/17 06:30] Trimethoprim 04/27/14 [Last Taken 11/18/17 06:30] Vitamin B Comp W-C 04/27/14 [Last Taken 05/13/18] Lasix 04/09/15 [Last Taken 11/18/17 06:30] VITAMIN D 01/12/17 [Last Taken 05/13/18] Carbamazepine 11/18/17 [Last Taken 11/17/17 19:00] Ropinirole HCl 11/18/17 [Last Taken 11/17/17] Symbicort 160-4.5 Mcg Inh (*) 05/13/18 [Last Taken Unknown] - Smoking Hx Smoking Status: Never smoked - Family Anes Hx Family Hx Anesthesia Complications: none ANE Labs/Vital Signs - Labs Result Diagrams: 05/18/18 10:25 - Vital Signs Height: 147.32 cm Weight: 93.894 kg ANE Physical Exam - Airway Neck exam: decreased ROM Mallampati Score: Class 1 Mouth exam: normal dental/mouth exam, poor dentition - Pulmonary Pulmonary: no respiratory distress, no rales or rhonchi, clear to auscultation - Cardiovascular Cardiovascular: regular rate and rhythym, no murmur, rub, or gallop - ASA Status ASA Status: III ANE Anesthesia Plan Anesthesia Plan: GA w LMA
[2018-05-19] MEDS: LR 1,000 ML IV ONE ×2 (11:00→11:42)
[2018-05-19] MEDS ORDERED: DEXAMETHASONE 4 MG/ML VIAL IVP PRN (11:02)
[2018-05-19] MEDS ORDERED: fentaNYL 100 MCG/2 ML INJ IVP PRN (11:02)
[2018-05-19] MEDS ORDERED: ALBUTEROL 3 ML DEYVIAL IH PRN (11:02)
[2018-05-19] MEDS ORDERED: ONDANSETRON 4 MG/2 ML VIAL IVP PRN (11:02)
[2018-05-19] MEDS ORDERED: NALOXONE HCL 0.4 MG/ML INJ IVP PRN (11:02)
[2018-05-19] MEDS ORDERED: MIDAZOLAM 2 MG/2 ML VIAL ONE (11:03)
[2018-05-19] MEDS ORDERED: fentaNYL 100 MCG/2 ML INJ ONE (11:03)
[2018-05-19] MEDS ORDERED: PROPOFOL/EMULSION 500 MG/50 ML BOTTLE IV ONE (11:04)
[2018-05-19] MEDS: VANCOMYCIN 1.5 GM in NS 250 ML IV ONE (11:15)
[2018-05-19] MEDS ORDERED: WATER FOR INJ.,BACTERIOSTATIC 30 ML MDV ONE (11:28)
--- NOTE | 2018-05-19 11:53 | POSTOPPROG ---
Post Op Note Date of Operation: 05/19/18 (dictated) Surgeon: Dav Davila Anesthesiologist: Sean Anesthesia: LMA Pre-op Diagnosis: neurogenic bladder Procedure: botox neurodenervation of the bladder / cystoscopy Inf/Abcess present in the surg proc area at time of surgery?: No EBL: Minimal Complications: none Specimen(s): none
--- NOTE | 2018-05-19 12:03 | PDANEPAE ---
ANE Past Medical History - Cardiovascular History Hx Hypertension: Yes Hx Arrhythmias: No Hx Chest Pain: No Hx Coronary Artery / Peripheral Vascular Disease: No Hx CHF / Valvular Disease: No Hx Palpitations: No - Pulmonary History Hx COPD: No Hx Asthma/Reactive Airway Disease: Yes Hx Recent Upper Respiratory Infection: No Hx Oxygen in Use at Home: No Hx Sleep Apnea: No Sleep Apnea Screening Result - Last Documented: Negative Pulmonary History Comment: instructed caregiver to bring inhaler - Neurologic History Hx Cerebrovascular Accident: Yes Hx Seizures: Yes Hx Dementia: No Neurologic History Comment: CVA 2011. epilepsy- last seizure 2015. encephalopathy with shunt - Endocrine History Hx Diabetes: No Endocrine History Comment: hypothyroidism - Renal History Hx Renal Disorders: Yes Renal History Comment: INCONTINENCE. UROGENIC BLADDER. hx of cystoscopies with botox injections - Liver History Hx Hepatic Disorders: No Hepatic History Comment: CHOLECYSTECTOMY - Neurological & Psychiatric Hx Hx Neurological and Psychiatric Disorders: Yes Neurological / Psychiatric History Comment: cerebral palsy - Cancer History Hx Cancer: No - Congenital Disorder History Hx Congenital Disorders: No - GI History Hx Gastrointestinal Disorders: Yes Gastrointestinal History Comment: gerd - Other Health History Other Health History: hearing aide to left ear only. lives in [facility]- she can sign her own consents. - Chronic Pain History Chronic Pain: No - Surgical History Prior Surgeries: cystoscopies with Botox injections with Giovanni 09/03/2016, , 05/27/17, 11/18/17. 12/27/08 ventral hernia repair with Joyner. L DIANNE. SHUNT - BRAIN(STROKE W/FLUID BRAIN & STROKE). CHOLECYSTECTOMY ANE Review of Systems Review of Systems: - Exercise capacity METS (RN): 1 METS ANE Patient History - Allergies Allergies/Adverse Reactions: acetaminophen [From Vicodin] Allergy (Verified 05/13/18 12:53) GI UPSET, EXTREME FATIGUE hydrocodone bitartrate [From Vicodin] Allergy (Verified 05/13/18 12:53) GI UPSET, EXTREME FATIGUE Penicillins Allergy (Verified 05/13/18 12:53) long time ago, can't remember piperacillin sodium [From Zosyn] Allergy (Verified 05/13/18 12:53) Unknown tazobactam sodium [From Zosyn] Allergy (Verified 05/13/18 12:53) Unknown STRAWBERRIES Allergy (Uncoded 05/13/18 12:53) Rash - Home Medications Home Medications: LEVETIRACETAM 04/27/14 [Last Taken 11/18/17 06:30] Levothyroxine 04/27/14 [Last Taken 11/18/17 06:30] Lisinopril 04/27/14 [Last Taken 11/18/17 06:30] Omeprazole 04/27/14 [Last Taken 11/18/17 06:30] Trimethoprim 04/27/14 [Last Taken 11/18/17 06:30] Vitamin B Comp W-C 04/27/14 [Last Taken 05/13/18] Lasix 04/09/15 [Last Taken 11/18/17 06:30] VITAMIN D 01/12/17 [Last Taken 05/13/18] Carbamazepine 11/18/17 [Last Taken 11/17/17 19:00] Ropinirole HCl 11/18/17 [Last Taken 11/17/17] Symbicort 160-4.5 Mcg Inh (*) 05/13/18 [Last Taken Unknown] - Smoking Hx Smoking Status: Never smoked - Family Anes Hx Family Hx Anesthesia Complications: none ANE Labs/Vital Signs - Labs Result Diagrams: 05/18/18 10:25 - Vital Signs Height: 147.32 cm ANE Physical Exam - Airway Neck exam: decreased ROM Mallampati Score: Class 1 Mouth exam: poor dentition - Pulmonary Pulmonary: no respiratory distress, no rales or rhonchi, reduced air movement - Cardiovascular Cardiovascular: regular rate and rhythym, no murmur, rub, or gallop - ASA Status ASA Status: III ANE Anesthesia Plan Anesthesia Plan: GA w LMA
--- NOTE | 2018-05-19 12:26 | GOP ---
[f rep st] OPERATIVE REPORT DATE OF OPERATION: SURGEON: Dav Davila MD PREOPERATIVE DIAGNOSIS: Neurogenic bladder, urge incontinence. POSTOPERATIVE DIAGNOSIS: Neurogenic bladder, urge incontinence. PROCEDURE PERFORMED: Botox neuro denervation of the bladder. FINDINGS: SPECIMENS: None. ESTIMATED BLOOD LOSS: Less than 5 mL. DESCRIPTION OF PROCEDURE: After appropriate anesthesia, and written and verbal consent from the chantell ent, she was prepped and draped in a normal sterile fashion. Dr. Estrada provided general anesthesia. Appropriate time-out. I diluted 200 units of Botox into 30 mL of water solution without Sterilin. Then with the Botox injection needle set at 5 mm, I was able to do the injection into the bladder. I did 30 injections starting from just above the trigone going from right to left, then gradually mar yvonne up the posterior part of the bladder and laterally. At the end of the procedure, there was min imal to no bleeding. Her bladder was irrigated out and she prefers not having a catheter, so we elec ira not to place a catheter at her request, and she will be discharged home to follow up with me as armando diaz. COMPLICATIONS: None. /[id number]/MODL
[2018-05-19 13:19] VITALS: BP 108/64
--- NOTE | 2018-05-22 18:08 | POSTANESTH ---
Post Anesthetic Evaluation Cardiovascular Status: Normal, Stable, Similar to Pre-Op Cond Respiratory Status: Normal, Stable, Similar to Pre-op Cond. Level of Consciousness/Mental Status: Moderately Sleepy Pain Control: Adequate, Prn Tx Ordered Nausea/Vomiting Control: Adequate, Prn Tx Ordered Complications Possibly Related to Anesthesia: None Noted
== END 2018-05-19 13:45 | disposition home or self-care (01) ==
LOC: FSGY 09:15
PROVIDERS: ATTEND Specialist
PROC: 0TJB8ZZ Inspection of Bladder, Via Natural or Artificial Opening Endoscopic (ICD-10-PCS; principal; 2018-05-19 12:15)
PROC: 3E0K8GC Introduction of Other Therapeutic Substance into Genitourinary Tract, Via Natural or Artificial Opening Endoscopic (ICD-10-PCS; principal; 2018-05-19 12:15)
DX: N31.9 Neuromuscular dysfunction of bladder, unspecified (principal); N39.41 Urge incontinence; G80.9 Cerebral palsy, unspecified; E03.9 Hypothyroidism, unspecified; E11.9 Type 2 diabetes mellitus without complications; I10 Essential (primary) hypertension; Z79.4 Long term (current) use of insulin; Z95.1 Presence of aortocoronary bypass graft; Z86.73 Personal history of transient ischemic attack (TIA), and cerebral infarction without residual deficits; Z99.3 Dependence on wheelchair
CPT/HCPCS: J0585; J2250; J2704; J3010; J3370

== ENCOUNTER → 2018-06-09 | Outpatient (CLI) | payer OTHER, MEDICAID | LOC: CIMAGING 11:49 | PROVIDERS: ATTEND Family Medicine | DX: S20.219A Contusion of unspecified front wall of thorax, initial encounter (principal); E66.9 Obesity, unspecified; D75.1 Secondary polycythemia; Z79.899 Other long term (current) drug therapy | CPT/HCPCS: 36415-PO; 71046-PO; 82668-90 ==

== ENCOUNTER → 2018-07-01 | Outpatient (CLI) | payer OTHER, MEDICAID | LOC: FIMAGING 11:03 ==

== ENCOUNTER → 2018-07-29 | Outpatient (CLI) | payer OTHER, MEDICAID | LOC: FIMAGING 10:12 | PROVIDERS: ATTEND Family Medicine | DX: Z12.31 Encounter for screening mammogram for malignant neoplasm of breast (principal) ==